=== PATIENT | female | born 1940 | race Caucasian/White ===

== ENCOUNTER → 2021-07-04 | Outpatient (CLI) | payer MEDICARE ==
[~2021-07-04] MED LIST: CLOPIDOGREL75 MG PO; COLACE 100MG C100 MG PO; COZAAR50 MG PO; DULOXETINE HCL30 MG PO; ECOTRIN81 MG PO; ENOXAPARIN40 MG/0.4 SC; IBUPROFEN600 MG PO; LEVOCETIRIZINE D5 MG PO; LORTAB 5-325 M1 EACH PO; NORCO 10-325 T1 EACH PO; PEPCID40 MG PO; PLETAL 100 MG100 MG PO; PRAMIPEXOLE D0.25 MG PO; REQUIP1 MG PO; TOPROL XL50 MG PO; TRAMADOL HCL50 MG PO; ULTRAM50 MG PO; VISTARIL25 MG PO; VITAMIN D250000 UNIT PO; VITAMIN E200 UNI3 PO; ZOLOFT50 MG PO
== END ==
LOC: HEART 5 09:02
DX: R07.9 Chest pain, unspecified (principal); R00.2 Palpitations; R60.0 Localized edema; I11.0 Hypertensive heart disease with heart failure; I50.9 Heart failure, unspecified; E78.49 Other hyperlipidemia; R06.02 Shortness of breath; I48.0 Paroxysmal atrial fibrillation; I25.5 Ischemic cardiomyopathy
CPT/HCPCS: 78452; A9502; J2785